=== PATIENT | male | born 2000 | race Caucasian/White ===

== ENCOUNTER 2019-03-15 07:22 | Emergency (ER) | payer BC ==
[2019-03-15 07:30] VITALS: TEMP 98.3
[2019-03-15] MEDS ORDERED: ONDANSETRON ODT 4 MG TAB PO STA (08:04)
[2019-03-15] MEDS ORDERED: ALBUTEROL NEBULIZED 2.5 MG/3 ML INHALATION STA (08:04)
[2019-03-15 08:36] VITALS: PULSE 84
[2019-03-15 09:21] VITALS: RESP 20
[2019-03-15 09:23] VITALS: BP 114/60
--- NOTE | 2019-03-15 09:36 | ED ---
URI HPI - General Chief Complaint: Upper Respiratory Infection Stated Complaint: flu Time Seen by Provider: 03/15/19 07:31 Source: patient Mode of arrival: ambulatory Limitations: no limitations - History of Present Illness Initial Comments: The patient is a 18-year-old male with no past medical history who presents to the emergency room with reported cough. States that his symptoms started last night. He has had close contact with his girlfriend who has been diagnosed with flu B. He admits to a nonproductive cough with shortness of breath. He has been taking her Tamiflu. He denies any underlying lung disorders. Does admit to mild nausea with one episode of vomiting prior to arrival. Denies any chest pain. No ripping or tearing sensation to his back. Admits to mild abdominal cramping. No diarrhea, constipation, melanotic stools or hematochezia. Admits to chills without recorded fevers. There are no alleviating, precipitating or modifying factors - Related Data Previous Rx's Medication Instructions Recorded Oseltamivir [Tamiflu] 75 mg PO Q12HR #10 cap 03/15/19 Allergies Allergy/AdvReac Type Severity Reaction Status Date / Time No Known Allergies Allergy Verified 03/15/19 07:30 Review of Systems ROS Statement: Those systems with pertinent positive or pertinent negative responses have been documented in the HPI. ROS Other: All systems not noted in ROS Statement are negative. Past Medical History Past Medical History: No Reported History History of Any Multi-Drug Resistant Organisms: None Reported Past Surgical History: Appendectomy Past Psychological History: No Psychological Hx Reported Smoking Status: Current every day smoker Past Alcohol Use History: None Reported Past Drug Use History: Marijuana General Exam Limitations: no limitations General appearance: alert, in no apparent distress Head exam: Present: atraumatic, normocephalic, normal inspection Eye exam: Present: normal appearance, PERRL, EOMI. Absent: scleral icterus, conjunctival injection, periorbital swelling ENT exam: Present: normal exam, mucous membranes moist Neck exam: Present: normal inspection. Absent: tenderness, meningismus, lymphadenopathy Respiratory exam: Present: wheezes. Absent: respiratory distress, rales, rhonchi, stridor, accessory muscle use Cardiovascular Exam: Present: regular rate, normal rhythm, normal heart sounds. Absent: systolic murmur, diastolic murmur, rubs, gallop, clicks GI/Abdominal exam: Present: soft, normal bowel sounds. Absent: distended, tenderness, guarding, rebound, rigid Extremities exam: Present: normal inspection, full ROM, normal capillary refill. Absent: tenderness, pedal edema, joint swelling, calf tenderness Back exam: Present: normal inspection Neurological exam: Present: alert, oriented X3, CN II-XII intact Psychiatric exam: Present: normal affect, normal mood Skin exam: Present: warm, dry, intact, normal color. Absent: rash Course Vital Signs 03/15/19 03/15/19 03/15/19 07:27 07:30 08:26 Temperature 98.3 F Pulse Rate 90 80 Respiratory 19 20 Rate Blood Pressure 118/72 O2 Sat by Pulse 97 Oximetry 03/15/19 03/15/19 03/15/19 08:30 08:35 09:43 Temperature Pulse Rate 77 84 Respiratory 20 20 Rate Blood Pressure 114/60 O2 Sat by Pulse 98 Oximetry Medical Decision Making - Medical Decision Making Upon arrival the patient is placed in room 17. A thorough history and physical exam was performed. The patient is swabbed for influenza. He is given a DuoNeb breathing treatment. Influenza B is positive. I did offer a chest x-ray however the patient refused. He does have clear lung sounds. At this time the patient will be given a prescription for Tamiflu as the symptoms have been less than 48 hours. He is to follow up with his primary care physician in 2-4 days. Return to the emergency room for any new or worsening symptoms. The patient was then discharged home in stable condition - Lab Data Lab Results 03/15/19 Range/Units 08:05 Influenza Type A RNA Not Detected (Not Detectd) Influenza Type B (PCR) Detected H (Not Detectd) Disposition Clinical Impression: Influenza B Disposition: HOME SELF-CARE Condition: Stable Instructions (If sedation given, give patient instructions): Influenza (ED) Additional Instructions: Please follow-up with your primary care doctor in 2-4 days. Return to the emergency room for any new or worsening symptoms Prescriptions: Oseltamivir [Tamiflu] 75 mg PO Q12HR #10 cap Is patient prescribed a controlled substance at d/c from ED?: No Referrals: None,Stated [Primary Care Provider] - 1-2 days Time of Disposition: 09:36
== END 2019-03-15 09:46 | disposition home or self-care (01) ==
LOC: EC 07:22
DX: J10.1 Influenza due to other identified influenza virus with other respiratory manifestations (principal); F17.200 Nicotine dependence, unspecified, uncomplicated; Z90.49 Acquired absence of other specified parts of digestive tract; Z53.29 Procedure and treatment not carried out because of patient's decision for other reasons
CPT/HCPCS: 87502; 94640; 99285

== ENCOUNTER 2019-08-01 07:22 | Emergency (ER) | payer BC ==
[2019-08-01 07:27] VITALS: BP 122/76; PULSE 89; RESP 18; TEMP 97.7
--- NOTE | 2019-08-01 07:56 | ED ---
General Adult HPI - General Chief complaint: ENT Stated complaint: Sore throat Time Seen by Provider: 08/01/19 07:28 Source: patient, RN notes reviewed Mode of arrival: ambulatory Limitations: no limitations - History of Present Illness Initial comments: Patient is a pleasant 18-year-old male presenting to the emergency department with sore throat. Onset of symptoms was around 5 days ago. Throat is more so on the left side. Patient also has sinus congestion. Patient does work around dust. Sore throat is waxing and waning with discomfort. It does hurt to swallow. No fevers. There may be minimal cough which patient associates to his sinuses. - Related Data Previous Rx's Medication Instructions Recorded Oseltamivir [Tamiflu] 75 mg PO Q12HR #10 cap 03/15/19 Amoxicillin 500 mg PO Q8H #30 capsule 08/01/19 Allergies Allergy/AdvReac Type Severity Reaction Status Date / Time No Known Allergies Allergy Verified 08/01/19 07:27 Review of Systems ROS Statement: Those systems with pertinent positive or pertinent negative responses have been documented in the HPI. ROS Other: All systems not noted in ROS Statement are negative. Constitutional: Denies: fever Eyes: Denies: eye pain ENT: Reports: throat pain, congestion. Denies: ear pain Respiratory: Reports: as per HPI. Denies: dyspnea Cardiovascular: Denies: chest pain Endocrine: Denies: fatigue Gastrointestinal: Denies: abdominal pain Genitourinary: Denies: dysuria Musculoskeletal: Denies: back pain Skin: Denies: rash Neurological: Denies: weakness Past Medical History Past Medical History: No Reported History History of Any Multi-Drug Resistant Organisms: None Reported Past Surgical History: Appendectomy Past Psychological History: No Psychological Hx Reported Smoking Status: Current every day smoker Past Alcohol Use History: None Reported Past Drug Use History: Marijuana General Exam Limitations: no limitations General appearance: alert, in no apparent distress Head exam: Present: normocephalic Eye exam: Present: normal appearance ENT exam: Present: other (Mild pharyngeal erythema, more so on the left side. No significant swelling or uvular edema. No trismus. No hoarse voice. Tenderness over the maxillary sinuses) Neck exam: Present: lymphadenopathy Respiratory exam: Present: normal lung sounds bilaterally Cardiovascular Exam: Present: regular rate, normal rhythm GI/Abdominal exam: Present: soft. Absent: tenderness Extremities exam: Present: normal inspection Neurological exam: Present: alert Psychiatric exam: Present: normal affect, normal mood Skin exam: Present: normal color Course Vital Signs 08/01/19 07:25 Temperature 97.7 F Pulse Rate 89 Respiratory 18 Rate Blood Pressure 122/76 O2 Sat by Pulse 97 Oximetry Disposition Clinical Impression: Acute sinusitis, Pharyngitis Disposition: HOME SELF-CARE Condition: Stable Instructions (If sedation given, give patient instructions): Pharyngitis (ED), Sinusitis (ED) Additional Instructions: [id number] Motrin or Tylenol as needed. Salt water gargle. Saline nasal spray. Return for difficulty breathing, difficulty tolerating oral intake, throat swelling, worsening symptoms or other concerns. Prescription sent to [facility] on . Prescriptions: Amoxicillin 500 mg PO Q8H #30 capsule Is patient prescribed a controlled substance at d/c from ED?: No Referrals: Kennedy Tyler [STAFF PHYSICIAN] - 1-2 days Time of Disposition: 07:55
== END 2019-08-01 08:06 | disposition home or self-care (01) ==
LOC: EC 07:22
DX: J02.9 Acute pharyngitis, unspecified (principal); J01.90 Acute sinusitis, unspecified; F17.200 Nicotine dependence, unspecified, uncomplicated
CPT/HCPCS: 99282